=== PATIENT | male | born 1980 | race American Indian/Alaskan Native ===

== ENCOUNTER 2020-11-28 11:42 | Emergency (ER) | payer SELFPAY ==
[2020-11-28] MEDS ORDERED: methylPREDNISolone Sod Succinate 125 MG/2 ML INJ IM ONE (11:59)
[2020-11-28] MEDS ORDERED: IPRATROPIUM/ALBUTEROL SULFATE 3 ML AMPUL.NEB IH ONE (11:59)
--- NOTE | 2020-11-28 12:02 | Emergency Department Report ---
ED General Adult HPI - General Chief complaint: Upper Respiratory Infection Stated complaint: PAT Time Seen by Provider: 11/28/20 11:53 Source: patient Mode of arrival: Wheelchair Limitations: No Limitations - History of Present Illness Initial comments: Patient is 40 years old male with history of bronchitis and he stated that he is not sure if he has asthma or not. Patient presented to the ER via EMS from home for evaluation of shortness of breath and difficulty breathing for the last 2 days. Patient stated that symptoms started with runny nose cough and congestion. Patient denied any fever or chills. No nausea or vomiting. - Related Data Previous Rx's Medication Instructions Recorded Last Taken Type Albuterol Sulfate [Ventolin HFA] 2 puff IH Q4H PRN #1 hfa.aer.ad 03/08/14 Unknown Rx DOXYCYCLINE Hyclate [Vibramycin 100 mg PO BID #20 capsule 03/08/14 Unknown Rx CAP] Loratadine (Nf) [Claritin] 10 mg PO DAILY #30 tablet 03/08/14 Unknown Rx Promethazine /Codeine 5 ml PO Q6H PRN #150 ml 03/08/14 Unknown Rx [Phenergan/Codeine 6.25-10 mg/5 ml] predniSONE [Deltasone] 50 mg PO QDAY #5 tab 03/08/14 Unknown Rx Allergies Allergy/AdvReac Type Severity Reaction Status Date / Time No Known Allergies Allergy Verified 03/08/14 18:59 ED Review of Systems ROS: Stated complaint: PAT Other details as noted in HPI Comment: All other systems reviewed and negative Constitutional: denies: chills, fever ENT: denies: throat pain Respiratory: cough, shortness of breath, SOB with exertion, SOB at rest, whe ezing. denies: orthopnea Cardiovascular: denies: chest pain, palpitations Gastrointestinal: denies: abdominal pain, nausea, vomiting Musculoskeletal: denies: back pain Neurological: denies: headache, weakness, numbness ED Past Medical Hx - Past Medical History Previous Medical History?: No Additional medical history: chronic bronchitis - Surgical History Past Surgical History?: No - Social History Smoking Status: Current Every Day Smoker Substance Use Type: None - Medications Home Medications: Home Medications Medication Instructions Recorded Confirmed Last Taken Type Albuterol Sulfate [Ventolin HFA] 2 puff IH Q4H PRN #1 hfa.aer.ad 03/08/14 Unk nown Rx DOXYCYCLINE Hyclate [Vibramycin 100 mg PO BID #20 capsule 03/08/14 Unknown Rx CAP] Loratadine (Nf) [Claritin] 10 mg PO DAILY #30 tablet 03/08/14 Unknown Rx Promethazine /Codeine 5 ml PO Q6H PRN #150 ml 03/08/14 Unknown Rx [Phenergan/Codeine 6.25-10 mg/5 ml] predniSONE [Deltasone] 50 mg PO QDAY #5 tab 03/08/14 Unknown Rx ED Physical Exam - General Limitations: No Limitations General appearance: alert, in no apparent distress - Head Head exam: Present: atraumatic, normocephalic, normal inspection - Eye Eye exam: Present: normal appearance - ENT ENT exam: Present: normal exam, normal orophraynx, mucous membranes moist - Neck Neck exam: Present: normal inspection, full ROM. Absent: tenderness, meningismus - Respiratory Respiratory exam: Present: wheezes, rhonchi, prolonged expiratory. Absent: respiratory distress, rales, accessory muscle use, decreased breath sounds - Cardiovascular Cardiovascular Exam: Present: regular rate, normal rhythm, normal heart sounds - GI/Abdominal GI/Abdominal exam: Present: soft, normal bowel sounds. Absent: distended, tenderness, guarding, rebound, rigid, organomegaly, mass, bruit, pulsatile mass, hernia - Extremities Exam Extremities exam: Present: normal inspection, full ROM, normal capillary refill. Absent: tenderness - Back Exam Back exam: Present: normal inspection. Absent: CVA tenderness (R), CVA tenderness (L) - Neurological Exam Neurological exam: Present: alert, oriented X3, CN II-XII intact - Psychiatric Psychiatric exam: Present: normal mood - Skin Skin exam: Present: warm, intact, normal color ED Course Vital Signs 11/28/20 11/28/20 11/28/20 11:50 12:10 12:16 Temperature 98.2 F Pulse Rate 82 Pulse Rate [ 79 Anterior Bilateral Throughout] Respiratory 18 Rate Respiratory 24 Rate [Anterior Bilateral Throughout] Blood Pressure 132/73 Blood Pressure 132/85 [Right] O2 Sat by Pulse 98 Oximetry 11/28/20 11/28/20 11/28/20 12:30 12:33 12:46 Temperature Pulse Rate Pulse Rate [ Anterior Bilateral Throughout] Respiratory Rate Respiratory Rate [Anterior Bilateral Throughout] Blood Pressure 113/75 113/75 Blood Pressure [Right] O2 Sat by Pulse 98 97 99 Oximetry 11/28/20 11/28/20 11/28/20 13:00 13:16 13:30 Temperature Pulse Rate Pulse Rate [ Anterior Bilateral Throughout] Respiratory Rate Respiratory Rate [Anterior Bilateral Throughout] Blood Pressure 101/68 101/68 131/74 Blood Pressure [Right] O2 Sat by Pulse 100 98 98 Oximetry 11/28/20 11/28/20 13:46 14:02 Temperature Pulse Rate Pulse Rate [ Anterior Bilateral Throughout] Respiratory Rate Respiratory Rate [Anterior Bilateral Throughout] Blood Pressure 101/68 142/79 Blood Pressure [Right] O2 Sat by Pulse 97 97 Oximetry ED Medical Decision Making - Lab Data Result diagrams: 11/28/20 12:55 11/28/20 12:55 - Radiology Data Radiology results: report reviewed - Medical Decision Making Patient is 40 years old male with history of bronchitis and he stated that he is not sure if he has asthma or not. Patient presented to the ER via EMS from home for evaluation of shortness of breath and difficulty breathing for the last 2 days. Patient stated that symptoms started with runny nose cough and congestion. Patient denied any fever or chills. No nausea or vomiting. Patient received albuterol, Atrovent and Solu-Medrol. Patient stated that his feeling much better. Labs reviewed and is unremarkable. Chest x-ray is negative for acute finding. Patient vies to follow-up with his primary doctor in the next 2 to 3 days and to return to the ER if he develop any new symptoms. Critical care attestation.: If time is entered above; I have spent that time in minutes in the direct care of this critically ill patient, excluding procedure time. ED Disposition Clinical Impression: Acute asthmatic bronchitis Disposition: HOME / SELF CARE / HOMELESS Is pt being admited?: No Condition: Stable Instructions: Acute Bronchitis (ED), Bronchospasm, Adult, Acute Bronchitis, Adult Referrals: PRIMARY CARE, [Primary Care Provider] - 3-5 Days
--- NOTE | 2020-11-28 12:39 | XRay Report ---
CHEST 1 VIEW INDICATION: chest pain. COMPARISON: None FINDINGS: Support devices: None. Heart: Within normal limits. Lungs/Pleura: No acute air space or interstitial disease. Additional findings: None. IMPRESSION: No acute findings. Signer Name: Jhon Hopkins Jr, MD Signed: 11/28/2020 12:35 PM Workstation Name: [id number]
[2020-11-28 13:25] LABS: Basophils # (Auto) 0.1 K/mm3 (0.0-0.1); Basophils % (Auto) 0.7 % (0.0-1.8); Eosinophils # (Auto) 0.3 K/mm3 (0.0-0.4); Eosinophils % (Auto) 3.9 % (0.0-4.3); Hematocrit 48.3 % (35.5-45.6); Hemoglobin 15.4 gm/dl (11.8-15.2); Lymphocytes # (Auto) 2.1 K/mm3 (1.2-5.4); Lymphocytes % (Auto) 28.4 % (13.4-35.0); Mean Corpuscular HGB Conc 32 % (32-34); Mean Corpuscular Volume 93 fl (84-94); Monocytes # (Auto) 0.6 K/mm3 (0.0-0.8); Monocytes % (Auto) 8.5 % (0.0-7.3); Platelet Count 306 K/mm3 (140-440); Red Blood Count 5.18 M/mm3 (3.65-5.03)
[2020-11-28 13:39] LABS: BUN/Creatinine Ratio 6; Blood Urea Nitrogen 7 mg/dL (9-20); Calcium 9.5 mg/dL (8.4-10.2); Hemolysis Index 10
[2020-11-28 14:15] VITALS: BP 142/79
== END 2020-11-28 15:08 | disposition home or self-care (01) ==
LOC: ED 11:42
DX: J45.909 Unspecified asthma, uncomplicated (principal); F17.200 Nicotine dependence, unspecified, uncomplicated; Z79.899 Other long term (current) drug therapy
CPT/HCPCS: 36415; 71045; 80048; 85025; 94640; 96372; 99284; J2930; 94644